=== PATIENT | male | born 1960 | race Caucasian/White ===

== ENCOUNTER 2018-09-02 18:00 | Emergency (ER) | payer MEDICAID ==
[~2018-09-02] VITALS: Ht 167.6 cm; Wt 82.7 kg
[2018-09-02 18:08] VITALS: BP 173/66
[2018-09-02] MEDS ORDERED: PRED20TA PO (20:45)
== END 2018-09-02 21:12 | disposition home or self-care (01) ==
LOC: ER 18:00
DX: M79.672 Pain in left foot (principal); R60.0 Localized edema; M10.9 Gout, unspecified; J44.9 Chronic obstructive pulmonary disease, unspecified; F17.200 Nicotine dependence, unspecified, uncomplicated
CPT/HCPCS: 73630; 99284